=== PATIENT | male | born 1965 | race Caucasian/White ===

== ENCOUNTER 2019-07-23 12:37 | Outpatient (CLI) | payer OTHER ==
[~2019-07-23] VITALS: Ht 175.3 cm; Wt 103.9 kg
== END 2019-07-23 23:59 | disposition home or self-care (01) ==
LOC: MOTHANC 12:37 → MDS 07-27 06:54 → MMU 07-27 06:55 → MDS 07-27 06:55 → EDSTATUS 07-27 07:30
PROVIDERS: ATTEND Surgery
DX: K42.9 Umbilical hernia without obstruction or gangrene (principal); R94.31 Abnormal electrocardiogram [ECG] [EKG]; Z53.8 Procedure and treatment not carried out for other reasons
CPT/HCPCS: 71045; 93005; J0690; J7060; J7120

== ENCOUNTER 2019-08-17 09:06 | Day surgery (SDC) | payer OTHER ==
[~2019-08-17] VITALS: Ht 175.3 cm; Wt 99.8 kg
--- NOTE | 2019-08-17 15:39 | NUR ---
RECEIVED BEDSIDE REPORT FROM [employer] SAL[employer] PERSONMILA CURRIE. WAS ENDORSED TO LEAVE IV TKO NO PUMP NEEDED. ORIENTED PT TO ROOM AND UNIT. PT IS TO BE KEPT NPO UNTIL PROCEDURE LATER THIS EVENING. ALL SAFETY MEASURES ARE IN PLACE. PT FAMILY IS AT BEDSIDE WILL CONTINUE TO MONITOR.
[2019-08-17 16:00] VITALS: BP 134/68
--- NOTE | 2019-08-17 17:05 | NUR ---
FREQUENT ROUNDING ON PT PT APPEARS STABLE AND IN NO APPARENT DISTRESS ALL SAFETY MEASURES ARE IN PLACE WILL CONTINUE TO MONITOR.
--- NOTE | 2019-08-17 19:21 | NUR ---
ENDORSED PT TO PM RN PT APPEARS STABLE AND IN NO APPARENT DISTRESS/ ALL SAFETY MEASURES ARE IN PLACE. PT AT BEDSIDE. IVF INFUSING IV SITE APPEARS PATENT AND SHOWS NO SIGNS OF INFILTRATION OR INFLAMMATION.
--- NOTE | 2019-08-17 19:22 | NUR ---
RECEIVED BEDSIDE REPORT FROM DAY RN. PT IS AAOX4 ON ROOM AIR. RESPIRATIONS ARE EQUAL AND UNLABORED. LUNG SOUNDS ARE CLEAR. SKIN IS INTACT. PT IS AMBULATORY WITH STEADY GAIT. IV ON LAC 24G IVF PER ORDERS. PT TO HAVE SURGERY WITH DR GRACIA AT 1999. PT BEEN NPO SINCE LAST NIGHT. POC DISCUSSED WITH PT AND FAMILY. CALL LIGHT IS WITHIN REACH.
--- NOTE | 2019-08-17 19:57 | NUR ---
VITAL SIGNS ARE WITHIN NORMAL LIMITS: 147/91 HR 59 RR 16 96% RA TEMP 96.9 DENIES PAIN. PT NOW GOING TO OR IN STABLE CONDITION.
[2019-08-17] MEDS ORDERED: fentaNYL 0.05 MG/ML VIAL ONE (20:05)
[2019-08-17] MEDS ORDERED: SEVOFLURANE 250 ML BTL INH ONE (20:05)
[2019-08-17] MEDS ORDERED: MIDAZOLAM 2 MG/2 ML VIAL ONE (20:05)
[2019-08-17] MEDS ORDERED: DEXAMETHASONE 4 MG/ML VIAL ONE (20:05)
[2019-08-17] MEDS ORDERED: LIDOCAINE 2% 100 MG/5 ML SYR IVP ONE (20:05)
[2019-08-17] MEDS ORDERED: PROPOFOL 200 MG/20 ML VIAL IV ONE (20:05)
[2019-08-17] MEDS ORDERED: ONDANSETRON 4 MG/2 ML VIAL ONE (20:05)
[2019-08-17] MEDS ORDERED: GLYCOPYRROLATE 0.2 MG/ML VIAL ONE (20:05)
[2019-08-17] MEDS ORDERED: KETOROLAC 30 MG/ML VIAL ONE (20:05)
[2019-08-17] MEDS ORDERED: BUPIVACAINE-MPF/EPI 0.25% 30 ML VIAL INJ ONE (20:07)
[2019-08-17] MEDS ORDERED: HYDROmorphone 1 MG/ML AMP IVP PRN ×2 (20:35→21:45)
[2019-08-17] MEDS ORDERED: ONDANSETRON 4 MG/2 ML VIAL IVP PRN ×2 (20:35→21:45)
[2019-08-17] MEDS ORDERED: NACL 0.9% 1,000 ML IV SCH (21:41)
[2019-08-17] MEDS ORDERED: HYDROcodone/APAP 5/325 MG 1 TAB TAB PO PRN (21:45)
[2019-08-17] MEDS ORDERED: ACETAMINOPHEN 325 MG TAB PO PRN (21:45)
[2019-08-17] MEDS ORDERED: MORPHINE SULFATE 4 MG/ML SYR IV PRN (21:45)
[2019-08-17] MEDS ORDERED: MORPHINE SULFATE 2 MG/ML SYR IVP PRN (21:45)
--- NOTE | 2019-08-17 22:20 | NUR ---
PT IS BACK FROM OR. PT IN STABLE CONDITION. VS: 114/80 HR 58 96.7 RR 18. PT WITH DRESSING MID ABDOMEN C/D/I. POC DISCUSSED WITH PT. HE CAN B D/C AFTER VOID AND IF HE FEELS READY OR BE D/C IN AM. PRESCRIPTION FOR [facility] F/U APPOINTMENT WITH DR GRACIA ON 08/30.
--- NOTE | 2019-08-17 22:30 | NUR ---
DR GRACIA IN TO SEE PT. POC DISCUSSED. PT AND VERBALIZED UNDERSTANDING. WILL CONTINUE TO MONITOR.
--- NOTE | 2019-08-17 23:01 | NUR ---
VSS. ADMINISTERED MORPHINE PRN FOR ABDOMEN PAIN 03/10. POC DISCUSSED. WILL CONTINUE TO MONITOR
[2019-08-18 00:01] VITALS: BP 128/86
--- NOTE | 2019-08-18 00:35 | NUR ---
PATIENT VOIDED AND AMBULATED. STATES FEELS READY TO GO HOME. GAVE D/C INSTRUCTIONS AND EDUCATED ON S/S OF INFECTION. PER MD TO REMOVE DRESSING TOMORROW AND OK TO SHOWER IN AM AND NO DRESSING AFTER. TO CALL DR GRACIA OFFICE TOMORROW TO [facility] APPOINTMENT FOR 08-30-19. PT AND VERBALIZED UNDERSTANDING. REMOVED IV, IV CATH INTACT. ARM BAND REMOVED. PRESCRIPTION FOR [facility] GIVEN. CLERICAL ORDER FILLER WALKED PT OUT TO [facility]. PT LEFT IN STABLE CONDITION.
== END 2019-08-18 00:35 | disposition home or self-care (01) ==
LOC: MCA 09:06 → MMU 09:07 → MCA 08-18 00:35
PROVIDERS: ATTEND Surgery
DX: K42.0 Umbilical hernia with obstruction, without gangrene (principal); E66.9 Obesity, unspecified; Z68.35 Body mass index [BMI] 35.0-35.9, adult
CPT/HCPCS: 49587; 71045; C1781; J0690; J1100; J1885; J2001; J2250; J2270; J2405; J2704; J3010; J3490; J7030; J7060; J7120

== ENCOUNTER 2020-12-01 08:08 | Day surgery (SDC) | payer OTHER, SELFPAY ==
[~2020-12-01] VITALS: Ht 175.3 cm; Wt 105.2 kg
[2020-12-01] MEDS ORDERED: LIDOCAINE 2% 100 MG/5 ML UJET TP ONE (09:54)
[2020-12-01] MEDS ORDERED: fentaNYL citrate 0.05 MG/ML VIAL ONE (09:54)
[2020-12-01] MEDS ORDERED: fentaNYL citrate 0.05 MG/ML VIAL IVP ONE (12:10)
== END 2020-12-01 11:40 | disposition home or self-care (01) ==
LOC: MDS 08:08 → MMU 08:09 → MDS 11:40
PROVIDERS: ATTEND Internal Medicine Gastroenterology
DX: Z12.11 Encounter for screening for malignant neoplasm of colon (principal); K57.30 Diverticulosis of large intestine without perforation or abscess without bleeding; G47.30 Sleep apnea, unspecified; F17.210 Nicotine dependence, cigarettes, uncomplicated; Z20.828 Contact with and (suspected) exposure to other viral communicable diseases; Z79.899 Other long term (current) drug therapy
CPT/HCPCS: 45378; J3010; U0003